=== PATIENT | female | born 1965 | race Caucasian/White ===

== ENCOUNTER 2024-10-17 06:43 | Day surgery (SDC) | payer BC, SELFPAY ==
[2024-10-12 09:10] LABS: Hematocrit 38.4 % (37.0-47.0); Hemoglobin 13.1 g/dL (12.0-16.0); Mean Corp Hgb Conc. 34.1 g/dL (33.0-37.0); Mean Corpuscular Hgb 31.6 pg (27.0-31.0); Mean Corpuscular Volume 92.8 fL (81.0-99.0); Mean Platelet Volume 10.5 fL (7.4-10.4); Platelet Count 148 10^3/uL (130-400); Red Blood Cell Count 4.14 10^6/uL (4.20-5.40); Red Cell Dist. Width 13.2 % (11.5-14.5); White Blood Cell Count 4.3 10^3/uL (4.8-10.8)
[2024-10-12 09:38] LABS: Blood Urea Nitrogen 16 mg/dl (7-17); Carbon Dioxide 32 mmol/L (22-30); Chloride 98 mmol/L (98-107); Glucose 95 mg/dl (70-99); Sodium 139 mmol/L (135-145); eGFR > 60.00
[2024-10-12 14:17] VITALS: BMI 27.5
[2024-10-17] VITALS (10 sets, daily range): BP systolic 120–134; BP diastolic 58–73; BMI 27.5
[2024-10-17] MEDS: Pyridium 200 MG PO (11:48)
[2024-10-17] MEDS: NORMOSOL-R/PLASMALYTE-A 1000 IV (11:54)
[2024-10-17] MEDS: DILAUDID 0.25 MG IV (14:30)
== END 2024-10-17 17:20 | disposition home or self-care (01) ==
LOC: SDS 06:43
PROVIDERS: ATTENDING PHYSICIAN Obstetrics & Gynecology; FAMILY PHYSICIAN Family Medicine; OTHER PHYSICIAN Internal Medicine Gastroenterology
DX: N81.6 Rectocele (principal); N95.8 Other specified menopausal and perimenopausal disorders
CPT/HCPCS: 57282; 57250; 36415; 80048; 85027; 86850; 86900; 86901; 93005